=== PATIENT | female | born 1945 | race Caucasian/White ===

== ENCOUNTER → 2017-07-17 16:35 | Outpatient (CLI) | payer MEDICARE | END | disposition home or self-care (01) | LOC: D.MAMMO 14:30 | DX: Z12.31 Encounter for screening mammogram for malignant neoplasm of breast (principal) ==

== ENCOUNTER → 2018-07-02 18:12 | Outpatient (CLI) | payer MEDICARE | END | disposition home or self-care (01) | LOC: D.MAMMO 10:00 | DX: Z12.31 Encounter for screening mammogram for malignant neoplasm of breast (principal) ==

== ENCOUNTER 2019-08-02 17:48 | Inpatient (IN) | payer MEDICARE ==
[~2019-08-02] VITALS: Ht 165.1 cm; Wt 66.7 kg
[2019-08-02 18:00] VITALS: BP 134/73
[2019-08-02 18:22] LABS: BASOPHILS 0.2 % (0-2); EOSINOPHILS 0.2 % (0-7); HEMATOCRIT 44.6 % (36.0-48.0); HEMOGLOBIN 15.2 g/dL (12-16); IMMATURE GRANULOCYTES 0.6 % (0-5); LYMPHOCYTES 10.7 % (15-50); MCH 31.1 pg (26.0-34.0); MCHC 34.1 g/dL (31.0-37.0); MCV 91.4 fL (80.0-100.0); MEAN PLATELET VOLUME 10.6 fL (7.4-10.4); MONOCYTES 5.4 % (2-11); NEUTROPHILS 82.9 % (40-80); PLATELET COUNT 256 10x3/uL (130-400); RBC 4.88 10x6/uL (4.00-5.40); RDW 12.8 % (11.5-14.5); WBC 19.7 10x3/uL (4.8-10.8)
[2019-08-02 18:36] LABS: INR 1.04 (0.85-1.17); PROTIME 13.1 SECONDS (11.6-15.0)
[2019-08-02 18:37] LABS: CALC OSMOLALITY 282 mosm/kg (275-300); CALCIUM 9.4 mg/dL (8.5-10.1); CARBON DIOXIDE 26.1 mmol/L (21.0-32.0); CHLORIDE - SERUM 101 mmol/L (98-107); CREATININE - SERUM 1.3 mg/dL (0.6-1.3); GLUCOSE 154 mg/dL (74-106); POTASSIUM - SERUM 3.5 mmol/L (3.5-5.1); SODIUM 140 mmol/L (136-145); UREA NITROGEN 14 mg/dL (7-18); eGFR NON AFRICAN AMERICAN 42 mL/min (90-120)
[2019-08-02 18:46] LABS: ALBUMIN 3.7 g/dL (3.4-5.0); ALKALINE PHOSPHATASE 180 U/L (46-116); ALT (SGPT) 16 U/L (10-68); BILIRUBIN - TOTAL 0.34 mg/dL (0.2-1.3); C-REACTIVE PROTEIN 1.2 mg/dL (0.0-0.9); CKMB 0.4 U/L (0.0-3.6); CREATINE KINASE 45 UL (21-215); PRO BNP 334 pg/mL (0-125); PROTEIN - SERUM 7.3 g/dL (6.4-8.2); TROPONIN-I < 0.017 ng/mL (0.000-0.060)
[2019-08-02 19:00] VITALS: BP 175/74
[2019-08-02 20:00] VITALS: BP 187/86
--- NOTE | 2019-08-02 20:05 | NUR ---
URINE SENT TO THE LAB.
[2019-08-02 20:09] LABS: COLOR YELLOW (YELLOW)
[2019-08-02 20:10] LABS: APPEARANCE CLEAR (CLEAR); BILIRUBIN NEGATIVE (NEGATIVE); GLUCOSE 100 mg/dL (NEGATIVE); KETONE NEGATIVE (NEGATIVE); NITRITE NEGATIVE (NEGATIVE); PROTEIN 1+ mg/dL (NEGATIVE); SPECIFIC GRAVITY 1.005 (1.005-1.020); UROBILINOGEN NORMAL (NORMAL)
[2019-08-02 20:11] LABS: EPITHELIAL CELLS 0-5 /hpf (0-5); WHITE CELLS - URINE 0-5 /hpf (NEGATIVE)
[2019-08-02 20:12] LABS: AMORPHOUS SEDIMENT <1+ /lpf (NONE SEEN); BACTERIA MODERATE /hpf (NEGATIVE)
[2019-08-02 21:00] VITALS: BP 173/82
[2019-08-03] VITALS: BP 177/78
[2019-08-03 01:22] VITALS: BP 177/78; BMI 24.5
--- NOTE | 2019-08-03 05:10 | NUR ---
PATIENT IS ALERT AND ORENTED ABLE TO VOICE NEEDS AND WANTS TO STAFF. UP AT GERMAN, WATER IN REACH AT BEDSIDE CALL LIGHT IN REACH. HAS HAD BM X 4 THIS SHIFT WITH BRIGHT RED BLOOD PRESENT DECREASING AMOUNT EACH TIME AND A CLOT WAS IN THE LAST ONEABOUT THE SIZE OF A QUARTER. WITH NO STOOL PRESENT WITH EACH MOVEMENT. CONTIUES TO HAVE ABD PAIN.
[2019-08-03 07:57] VITALS: BP 150/68
[2019-08-03 09:36] LABS: BASOPHILS 0.1 % (0-2); EOSINOPHILS 0 % (0-7); IMMATURE GRANULOCYTES 0.2 % (0-5); LYMPHOCYTES 10.1 % (15-50); MCH 30.1 pg (26.0-34.0); MCHC 33.1 g/dL (31.0-37.0); MCV 90.8 fL (80.0-100.0); MEAN PLATELET VOLUME 10.3 fL (7.4-10.4); MONOCYTES 6.4 % (2-11); NEUTROPHILS 83.2 % (40-80); PLATELET COUNT 208 10x3/uL (130-400); RDW 12.9 % (11.5-14.5)
[2019-08-03 09:37] LABS: HEMATOCRIT 34.4 % (36.0-48.0); HEMOGLOBIN 11.4 g/dL (12-16); RBC 3.79 10x6/uL (4.00-5.40); WBC 13.1 10x3/uL (4.8-10.8)
[2019-08-03 09:41] LABS: ANION GAP 12.7 mmol/L (8-16); CALCIUM 8.6 mg/dL (8.5-10.1); CARBON DIOXIDE 22.8 mmol/L (21.0-32.0); CREATININE - SERUM 1.2 mg/dL (0.6-1.3); POTASSIUM - SERUM 3.5 mmol/L (3.5-5.1)
[2019-08-03 12:11] VITALS: BP 144/60
--- NOTE | 2019-08-03 14:12 | NUR ---
FAMILY AT BS. NO C/O PAIN. RESP EVEN AND UNLABORED.
[2019-08-03 14:24] LABS: HEMATOCRIT 32.9 % (36.0-48.0); HEMOGLOBIN 10.9 g/dL (12-16)
--- NOTE | 2019-08-03 16:17 | NUR ---
NO CHANGE IN ASSESSMENT. FAMILY AT BS. NO DISTRESS NOTED. CL IN REACH. RESP EVEN AND UNLABORED.
[2019-08-03 16:19] VITALS: BP 117/70
--- NOTE | 2019-08-03 19:00 | NUR ---
BEDSIDE REPORT RECEIVED AND CARE OF PT ASSUMED. PT LYING IN SUPINE POSITION VISITING WITH FAMILY MEMBER. IV TO LEFT AC PATENT WITH NS INFUSING AT 100 ML/HR. CLEAN IN PLACES OPERATOR W/ MORPHINE IN USE FOR PAIN CONTROL. WILL MONITOR FOR NEEDS.
[2019-08-03 19:43] LABS: HEMATOCRIT 31.2 % (36.0-48.0); HEMOGLOBIN 10.4 g/dL (12-16)
[2019-08-03 19:51] LABS: INR 1.23 (0.85-1.17); PROTIME 14.9 SECONDS (11.6-15.0)
[2019-08-03 20:52] VITALS: BP 113/72
--- NOTE | 2019-08-03 21:21 | NUR ---
HS MEDICATIONS GIVEN TO INCLUDE AMBIEN 10 MG PO PER REQUEST FOR SLEEP.
[2019-08-04] MEDS ORDERED: PRINIVIL10 MG PO (00:28)
[2019-08-04 01:21] VITALS: BP 161/71
[2019-08-04] MEDS ORDERED: ZOLOFT100 MG PO (01:42)
[2019-08-04] MEDS ORDERED: K-TAB10 MEQ PO (01:42)
[2019-08-04] MEDS ORDERED: DILTIAZEM 24HR240 M4 PO (01:42)
[2019-08-04] MEDS ORDERED: LIPITOR20 MG PO (01:43)
[2019-08-04] MEDS ORDERED: SOMA350 MG PO (01:43)
[2019-08-04] MEDS ORDERED: HYDROCODON-ACE1 EA10 PO (01:44)
--- NOTE | 2019-08-04 04:00 | NUR ---
HIBACLENS BATH PERFORMED AND ALL LINENS AND GOWN CHANGED.
[2019-08-04 04:49] LABS: BASOPHILS 0.1 % (0-2); EOSINOPHILS 0.1 % (0-7); HEMATOCRIT 31.3 % (36.0-48.0); HEMOGLOBIN 10.3 g/dL (12-16); IMMATURE GRANULOCYTES 0.3 % (0-5); LYMPHOCYTES 14.2 % (15-50); MCH 30.1 pg (26.0-34.0); MCHC 32.9 g/dL (31.0-37.0); MCV 91.5 fL (80.0-100.0); MEAN PLATELET VOLUME 10.6 fL (7.4-10.4); MONOCYTES 5.6 % (2-11); NEUTROPHILS 79.7 % (40-80); PLATELET COUNT 178 10x3/uL (130-400); RBC 3.42 10x6/uL (4.00-5.40); WBC 11.9 10x3/uL (4.8-10.8)
[2019-08-04 05:03] LABS: CALC OSMOLALITY 275 mosm/kg (275-300); CALCIUM 8.1 mg/dL (8.5-10.1); CARBON DIOXIDE 24.7 mmol/L (21.0-32.0); CHLORIDE - SERUM 105 mmol/L (98-107); CREATININE - SERUM 0.7 mg/dL (0.6-1.3); GLUCOSE 100 mg/dL (74-106); POTASSIUM - SERUM 3.2 mmol/L (3.5-5.1); SODIUM 139 mmol/L (136-145); UREA NITROGEN 6 mg/dL (7-18); eGFR NON AFRICAN AMERICAN 87 mL/min (90-120)
[2019-08-04 05:45] VITALS: BP 150/70
--- NOTE | 2019-08-04 07:47 | NUR ---
PT RESTING IN BED. NO ACUTE DISTRESS NOTED. PT RATES PAIN 4/10 AT THIS TIME. MORPHINE BIODIESEL PLANT SUPERINTENDENT INTACT AND IN USE. IV TO LEFT AC WITH NS @ 100 ML/HR INFUSING VIA PUMP. SITE WITHOUT REDNESS OR EDEMA. REPORTS ABDOMINAL TENDERNESS AT TIMES. DENIES FURTHER NEEDS AT THIS TIME. CL WITHIN REACH. ENCOURAGED TO CALL WITH NEEDS. CONTINUE POC
[2019-08-04 08:38] VITALS: BP 132/56
[2019-08-04 09:45] LABS: % SATURATION 12 % (15-55); IRON 27 ug/dl (35-150); TOTAL IRON BIND CAPACITY 222 ug/dl (260-445); UNSAT IRON BIND CAPACITY 195 ug/dl (150-375)
[2019-08-04 09:59] LABS: HEMATOCRIT 29.9 % (36.0-48.0); HEMOGLOBIN 9.9 g/dL (12-16)
[2019-08-04 12:48] VITALS: BP 128/62
[2019-08-04 14:20] VITALS: Ht 165.1 cm; Wt 66.7 kg
[2019-08-04 15:24] LABS: HEMATOCRIT 29.5 % (36.0-48.0); HEMOGLOBIN 9.6 g/dL (12-16)
[2019-08-04 16:43] VITALS: BP 109/50
--- NOTE | 2019-08-04 19:57 | NUR ---
REC'D IN BED DURING SHIFT CHGE WALKING ROUNDS IN BED HOB UP 40 DEGREES. FAMILY AT BEDSIDE DENIES ANY DISCOMFORT AT PRESENT TIME.INSTRUCTED TO LET NURSE ASSESS ANY RECTAL BLEEDING.VOICES UNDERSTANDING WILL CONTINUE TO MONIOR FOR ANY CHGES. AND FOLLOW CURRENT PLAN OF CARE
[2019-08-04 20:20] VITALS: BP 149/66
[2019-08-04 21:17] LABS: HEMATOCRIT 29.4 % (36.0-48.0); HEMOGLOBIN 9.8 g/dL (12-16)
[2019-08-05 00:40] VITALS: BP 116/52
[2019-08-05 05:41] VITALS: BP 144/58
[2019-08-05 06:46] LABS: BASOPHILS 0.1 % (0-2); EOSINOPHILS 0.7 % (0-7); HEMATOCRIT 30.3 % (36.0-48.0); IMMATURE GRANULOCYTES 0.4 % (0-5); LYMPHOCYTES 18.1 % (15-50); MCH 30.3 pg (26.0-34.0); MCV 91.8 fL (80.0-100.0); MEAN PLATELET VOLUME 10.5 fL (7.4-10.4); MONOCYTES 4.9 % (2-11); NEUTROPHILS 75.8 % (40-80); PLATELET COUNT 195 10x3/uL (130-400); RDW 12.9 % (11.5-14.5)
[2019-08-05 07:11] LABS: CALC OSMOLALITY 277 mosm/kg (275-300); CALCIUM 8.4 mg/dL (8.5-10.1); CARBON DIOXIDE 27.4 mmol/L (21.0-32.0); CHLORIDE - SERUM 105 mmol/L (98-107); CREATININE - SERUM 0.5 mg/dL (0.6-1.3); GLUCOSE 91 mg/dL (74-106); POTASSIUM - SERUM 3.1 mmol/L (3.5-5.1); SODIUM 141 mmol/L (136-145); UREA NITROGEN 3 mg/dL (7-18); eGFR NON AFRICAN AMERICAN > 90 mL/min (90-120)
--- NOTE | 2019-08-05 07:36 | NUR ---
I have reviewed this patient and I concur with the Shift Assessment completed by the Licensed Practical Nurse today this shift.
--- NOTE | 2019-08-05 07:50 | NUR ---
PT RESTING IN BED WITH DAUGHTER AT BEDSIDE. RESP EVEN AND UNLABORED. PT REPORTS BACK PAIN AT THIS TIME 03/12. MORPHINE ERGONOMICS TECHNICIAN INTACT AND IN USE. IV TO LEFT AC WITH NS @ 30ML/HR INFUSING VIA PUMP. SITE WITHOUT REDNESS OR EDEMA. DENIES FURTHER NEEDS AT THIS TIME. CL WITHIN REACH. ENCOURAGED TO CALL WITH NEEDS. CONTINUE POC
[2019-08-05 08:21] VITALS: BP 160/72
[2019-08-05 12:17] VITALS: BP 145/50
--- NOTE | 2019-08-05 16:31 | MORECARE ---
CASE MANAGEMENT DISCHARGE SUMMARY PATIENT: CIPRIANO NEGRETE UNIT: [id number] ADM DATE: 08/02/19 AGE: 74 : 46 SEX: F [facility] AUTHOR: SHAKEEL GHOTRA PHYSICIAN: REFERRING PHYSICIAN: KOLE GARCIA MD DATE OF SERVICE: 08/05/19 Discharge Plan Patient Name: CIPRIANO NEGRETE Facility: [facility]:[place] : 1945 Planned Disposition: Home Anticipated Discharge Date: 08/06/19 Discharge Date: Expected LOS: 4 Initial Reviewer: [email or web address] Initial Review Date: 08/05/2019 Generated: 08/05/19 5:31 pm Patient Name: CIPRIANO NEGRETE Page [id number] at 1631 All edits/amendments must be made on the electronic document DICTATION DATE: 08/05/19 1631 ASSEMBLER MOTOR VEHICLE: FLORENCIO 08/05/19 1631 RPT#: [id number] DC DATE: STATUS: ADM IN [facility] [address] [place] [address] END OF REPORT
[2019-08-05 16:34] VITALS: BP 132/64
--- NOTE | 2019-08-05 16:41 | MORECARE ---
CASE MANAGEMENT DISCHARGE SUMMARY PATIENT: CIPRIANO NEGRETE UNIT: [id number] ADM DATE: 08/02/19 AGE: 74 : 46 SEX: F ROOM/BED: D.2235 AUTHOR: SHAKEEL GHOTRA PHYSICIAN: REFERRING PHYSICIAN: KOLE GARCIA MD DATE OF SERVICE: 08/05/19 Discharge Plan Patient Name: CIPRIANO NEGRETE Facility: [facility]:[place] : 1945 Planned Disposition: Home Anticipated Discharge Date: 08/06/19 Discharge Date: Expected LOS: 4 Initial Reviewer: [email or web address] Initial Review Date: 08/05/2019 Generated: 08/05/19 5:40 pm Comments DCP- Discharge Planning Updated by [email or web address]: Deepti Mcneil on 08/05/19 3:[address] Patient Name: CIPRIANO NEGRETE Admission Status: ER Accout number: [id number] Admission Date: 08-02-2019 : 1945 Admission Diagnosis: Attending: SPRING Current LOS: 3 Anticipated DC Date: 08-06-2019 Planned Disposition: Home Primary Insurance: MEDICARE A & B Discharge Planning Comments: CM met with patient to complete initial dc planning assessment, she is alone in the room. CM educated patient on the CM role and verbal consent given by patient to complete assessment. Patient lives at home with her spouse and her brother. At discharge patient plans to return and feels this is a safe discharge. CM discussed availability of home health, rehab services, and medical equipment. Patient denied known discharge needs at this time. CM will continue to follow and will assist as needed with dc plans/needs. Residential Care Facility Manager: Deepti Mcneil DCPIA - Discharge Planning Initial Assessment Updated by [email or web address]: Deepti Mcneil on 08/05/19 4:38 pm * Is the patient Alert and Oriented? Yes * How many steps to enter\exit or inside your home? 3/2 flight * PCP Dr. Ashraf * [facility] [address] * Preadmission Environment Home with Family * ADLs Independent * Equipment None * List name and contact numbers for known caregivers / representatives who currently or will assist patient after discharge: Ba Trejo [facility] [phone] or [phone] * Verbal permission to speak to the caregivers and representatives has been obtained from the patient. Yes * Community resources currently utilized None * Additional services required to return to the preadmission environment? No * Can the patient safely return to the preadmission environment? Yes * Has this patient been hospitalized within the prior 30 days at any hospital? No Coverage Notice Reviewer: [id number] Delphine Mcneil Notice Issued Date-Time: 08/05/2019 16:39 Notice Type: IM Discharge Notice Notice Delivered To: Patient Relationship to Patient: Self Supervisor Type Bar And Segment Name: Delivery Method: HAND - Hand Delivered Tiffanie Days: Prior Verbal Notification: Recipient Understood Notice: Yes Recipient Signature: Yes Med Rec Note Co-signed by Attending: Coverage Notice Comment: IMM explained, signed, given, copy placed in MR Last DP export: 08/05/19 3:31 p Patient Name: CIPRIANO NEGRETE Page [phone] at 1641 All edits/amendments must be made on the electronic document DICTATION DATE: 08/05/19 1640 CHEESE WEIGHER: FLORENCIO 08/05/19 1640 RPT#: [id number] DC DATE: STATUS: ADM IN [facility] [address] [place] [address] END OF REPORT
--- NOTE | 2019-08-05 20:16 | NUR ---
c/o nausea no emesis during chge. of shift.walking rounds zofran given slow iv as ordered for relief.will continue to monitor for any chges and follow current plan of care. family at bedside dr. clay here
[2019-08-05 21:15] VITALS: BP 159/73
[2019-08-06 01:04] VITALS: BP 166/75
[2019-08-06 05:50] VITALS: BP 172/71
--- NOTE | 2019-08-06 06:00 | NUR ---
I have reviewed this patient and I concur with the Shift Assessment completed by the Licensed Practical Nurse today this shift.
[2019-08-06 06:50] LABS: CALC OSMOLALITY 285 mosm/kg (275-300); CALCIUM 8.3 mg/dL (8.5-10.1); CHLORIDE - SERUM 107 mmol/L (98-107); CREATININE - SERUM 0.6 mg/dL (0.6-1.3); GLUCOSE 100 mg/dL (74-106); POTASSIUM - SERUM 3.5 mmol/L (3.5-5.1); SODIUM 145 mmol/L (136-145); eGFR NON AFRICAN AMERICAN > 90 mL/min (90-120)
[2019-08-06 06:53] LABS: UREA NITROGEN 4 mg/dL (7-18)
[2019-08-06 06:58] LABS: BASOPHILS 0.1 % (0-2); EOSINOPHILS 1.2 % (0-7); HEMATOCRIT 30.4 % (36.0-48.0); HEMOGLOBIN 10.1 g/dL (12-16); IMMATURE GRANULOCYTES 1.2 % (0-5); LYMPHOCYTES 20.4 % (15-50); MCH 30.2 pg (26.0-34.0); MCHC 33.2 g/dL (31.0-37.0); MEAN PLATELET VOLUME 10.8 fL (7.4-10.4); MONOCYTES 6.7 % (2-11); NEUTROPHILS 70.4 % (40-80); PLATELET COUNT 207 10x3/uL (130-400); RBC 3.34 10x6/uL (4.00-5.40); RDW 12.8 % (11.5-14.5)
[2019-08-06 07:04] LABS: WBC 6.7 10x3/uL (4.8-10.8)
--- NOTE | 2019-08-06 08:00 | NUR ---
ASSESSMENT PER FLOW SHEET. PT IS WITHOUT DISTRESS.MONITOR FOR NEEDS.
[2019-08-06 08:36] VITALS: BP 142/70
[2019-08-06 12:32] VITALS: BP 136/64
--- NOTE | 2019-08-06 14:45 | NUR ---
STOOL TO LAB ORDERED
[2019-08-06 16:28] VITALS: BP 164/76
--- NOTE | 2019-08-06 18:45 | NUR ---
PT REMAINS WITHOUT DISTRESS. PT IS WITHOUT DHANGE.CONT PLAN OF CARE
--- NOTE | 2019-08-06 19:18 | NUR ---
LYING IN BED WITH TELEVISION ON, FAMILY AT BEDSIDE. COMPLAINS OF EFFECTS OF IRON. INFUSION IS COMPLETE, WILL FLUSH IV. IV SITE APPEARS TO HAVE BECOME INFILTRATED. RESITED TO RIGHT OUTER FOREARM WITH 22G, OLD IV TO LEFT AC DCD WITH TIP INTACT. COMPLAINS OF NAUSEA AND UNABLE TO SLEEP, WILL MEDICATE ACCORDING TO MAR, WILL NOTE ANY CHANGE.
[2019-08-06 20:00] VITALS: BP 148/72
[2019-08-07] VITALS: BP 152/68
--- NOTE | 2019-08-07 01:45 | NUR ---
I have reviewed this patient and I concur with the Shift Assessment completed by the Licensed Practical Nurse today this shift.
[2019-08-07 04:00] VITALS: BP 160/73
--- NOTE | 2019-08-07 06:18 | NUR ---
REQUESTED PAIN MEDICATION AT 0133 THIS SHIFT, EFFECTIVE. SLEPT MOST OF SHIFT WITH FAMILY AT BEDSIDE. WILL NOTE ANY CHANGE.
[2019-08-07 06:44] LABS: CALCIUM 8.3 mg/dL (8.5-10.1); CARBON DIOXIDE 30.5 mmol/L (21.0-32.0); CHLORIDE - SERUM 106 mmol/L (98-107); CREATININE - SERUM 0.5 mg/dL (0.6-1.3); GLUCOSE 96 mg/dL (74-106); SODIUM 141 mmol/L (136-145); eGFR NON AFRICAN AMERICAN > 90 mL/min (90-120)
[2019-08-07 06:50] LABS: CALC OSMOLALITY 276 mosm/kg (275-300); UREA NITROGEN 2 mg/dL (7-18)
--- NOTE | 2019-08-07 06:50 | NUR ---
CRITICAL POTASSIUM NOTED 2.8. BEATER ROOM SUPERVISOR MADE AWARE. ELECTROLYTE PROTOCOL IN PROGRESS. DENIES NEEDS OR PAIN AT THIS TIME. PT STATES SHE HAD A BM HOWEVER, HAT DID NOT CATCH SAMPLE. HAT ADJUSTED AND PT EDUCATED ON IMPORTANCE OF SAMPLE. RR EVEN AND UNLABORED. BED IN LOWEST POSITION.CALL LIGHT WITHIN REACH. WILL CONTINUE TO MONITOR.
[2019-08-07 06:52] LABS: POTASSIUM - SERUM 2.8 mmol/L (3.5-5.1)
[2019-08-07 07:01] LABS: HEMATOCRIT 28.1 % (36.0-48.0); HEMOGLOBIN 9.6 g/dL (12-16); LYMPHOCYTES 29.8 % (15-50); MCH 30.8 pg (26.0-34.0); MCHC 34.2 g/dL (31.0-37.0); MCV 90.1 fL (80.0-100.0); MEAN PLATELET VOLUME 10.2 fL (7.4-10.4); NEUTROPHILS 61.7 % (40-80); PLATELET COUNT 216 10x3/uL (130-400); RBC 3.12 10x6/uL (4.00-5.40); RDW 12.9 % (11.5-14.5); WBC 5.8 10x3/uL (4.8-10.8)
[2019-08-07 08:36] VITALS: BP 150/74
--- NOTE | 2019-08-07 13:43 | NUR ---
Nutrition follow-up: Diet: Regular PO intake 50-100% of last 3 meals Labs reviewed; Mg,K low and being replaced Wt: 146# PO intake good at this time. RDN following.
[2019-08-07 14:44] VITALS: BP 172/82
[2019-08-07 16:36] VITALS: BP 182/89
--- NOTE | 2019-08-07 17:24 | NUR ---
I have reviewed this patient and I concur with the Shift Assessment completed by the Licensed Practical Nurse today this shift.
--- NOTE | 2019-08-07 19:00 | NUR ---
BEDSIDE REPORT RECEIVED AND CARE OF PT ASSUMED. PT LYING IN SUPINE POSITION VISITING WITH SPOUSE. PT WAITING FOR MD TO POSSIBLY D/C TODAY.
[2019-08-07 20:01] LABS: MAGNESIUM - SERUM 1.5 mg/dL (1.8-2.4)
[2019-08-07 20:02] LABS: POTASSIUM - SERUM 3.6 mmol/L (3.5-5.1)
--- NOTE | 2019-08-07 20:30 | NUR ---
ROUNDED ON PT...STAYING TONIGHT. POSSIBLE D/C TOMORROW.
[2019-08-07 21:00] VITALS: BP 191/88
--- NOTE | 2019-08-07 21:02 | NUR ---
HS MEDICATIONS GIVEN. WILL CONTINUE TO MONITOR FOR NEEDS.
--- NOTE | 2019-08-07 21:40 | NUR ---
MAG LEVEL 1.5 ON RE-DRAW. GAVE 400 MG MAG OX PER ELECTROLYTE PROTOCAL.
[2019-08-08 00:13] VITALS: BP 150/78
[2019-08-08 05:14] VITALS: BP 186/86
[2019-08-08 07:02] LABS: CALC OSMOLALITY 277 mosm/kg (275-300); CALCIUM 8.5 mg/dL (8.5-10.1); CARBON DIOXIDE 28.7 mmol/L (21.0-32.0); CHLORIDE - SERUM 105 mmol/L (98-107); CREATININE - SERUM 0.6 mg/dL (0.6-1.3); GLUCOSE 107 mg/dL (74-106); POTASSIUM - SERUM 3.1 mmol/L (3.5-5.1); SODIUM 141 mmol/L (136-145); eGFR NON AFRICAN AMERICAN > 90 mL/min (90-120)
[2019-08-08 07:07] LABS: BASOPHILS 0.3 % (0-2); EOSINOPHILS 1.8 % (0-7); HEMOGLOBIN 10.4 g/dL (12-16); IMMATURE GRANULOCYTES 3.7 % (0-5); LYMPHOCYTES 27.3 % (15-50); MCH 30.3 pg (26.0-34.0); MCHC 33.5 g/dL (31.0-37.0); MCV 90.4 fL (80.0-100.0); MONOCYTES 10.4 % (2-11); NEUTROPHILS 56.5 % (40-80); RBC 3.43 10x6/uL (4.00-5.40); RDW 12.9 % (11.5-14.5); WBC 6.8 10x3/uL (4.8-10.8)
[2019-08-08 07:08] LABS: PLATELET COUNT 278 10x3/uL (130-400)
[2019-08-08 07:09] LABS: UREA NITROGEN 3 mg/dL (7-18)
--- NOTE | 2019-08-08 08:00 | NUR ---
ALERT AND ORIENTED X4. ABDOMEN SOFT WITH BOWEL SOUNDS NOTED X4 WITH FLATULANCE. OV TO RT. F/A WITH IVF INFUSING AT PRESCRIBED RATE. TELEMETRY INTACT. DENEIS ANY PAIN OR DISCOMFORT WITH FAMILY PRESENT. ENCOURAGED TO USE CALL LIGHT FOR ASSIST.
[2019-08-08 08:46] VITALS: BP 185/83
--- NOTE | 2019-08-08 09:16 | MORECARE ---
CASE MANAGEMENT DISCHARGE SUMMARY PATIENT: CIPRIANO NEGRETE UNIT: [id number] ADM DATE: 08/02/19 AGE: 74 : 46 SEX: F ROOM/BED: D.2235 AUTHOR: SHAKEEL GHOTRA PHYSICIAN: REFERRING PHYSICIAN: KOLE GARCIA MD DATE OF SERVICE: 08/08/19 Discharge Plan Patient Name: CIPRIANO NEGRETE Facility: [facility]:[place] : 1945 Planned Disposition: Home Anticipated Discharge Date: 08/06/19 Discharge Date: Expected LOS: 4 Initial Reviewer: [email or web address] Initial Review Date: 08/05/2019 Generated: 08/08/19 10:16 am Comments DCP- Discharge Planning Updated by [email or web address]: Deepti Mcneil on 08/08/19 8:[address] Patient Name: CIPRIANO NEGRETE Encounter No: [id number] : 1945 Primary Insurance: MEDICARE A & B Anticipated DC Date: 08-06-2019 Planned Disposition: Home External Planned Provider: : DCP follow-up note: Patient and family in agreement with discharge plan. No changes to plan. Case management will follow and assist as needed. Deepti Mcneil DCP- Discharge Planning Updated by [email or web address]: Deepti Mcneil on 08/05/19 3:[address] Patient Name: CIPRIANO NEGRETE Admission Status: ER Accout number: [id number] Admission Date: 08-02-2019 : 1945 Admission Diagnosis: Attending: SPRING Current LOS: 3 Anticipated DC Date: 08-06-2019 Planned Disposition: Home Primary Insurance: MEDICARE A & B Discharge Planning Comments: CM met with patient to complete initial dc planning assessment, she is alone in the room. CM educated patient on the CM role and verbal consent given by patient to complete assessment. Patient lives at home with her spouse and her brother. At discharge patient plans to return and feels this is a safe discharge. CM discussed availability of home health, rehab services, and medical equipment. Patient denied known discharge needs at this time. CM will continue to follow and will assist as needed with dc plans/needs. Television News Producer: Deepti Mcneil DCPIA - Discharge Planning Initial Assessment Updated by [id number]: Deepti Mcneil on 08/05/19 4:38 pm * Is the patient Alert and Oriented? Yes * How many steps to enter\exit or inside your home? 3/2 flight * PCP Dr. Ashraf * [facility] [address] * Preadmission Environment Home with Family * ADLs Independent * Equipment None * List name and contact numbers for known caregivers / representatives who currently or will assist patient after discharge: Ba Trejo - spouse - [phone] or [phone] * Verbal permission to speak to the caregivers and representatives has been obtained from the patient. Yes * Community resources currently utilized None * Additional services required to return to the preadmission environment? No * Can the patient safely return to the preadmission environment? Yes * Has this patient been hospitalized within the prior 30 days at any hospital? No Coverage Notice Reviewer: [email or web address] Mcneil Notice Issued Date-Time: 08/05/2019 16:39 Notice Type: IM Discharge Notice Notice Delivered To: Patient Relationship to Patient: Self Cargo And Ramp Services Manager Name: Delivery Method: HAND - Hand Delivered Tiffanie Days: Prior Verbal Notification: Recipient Understood Notice: Yes Recipient Signature: Yes Med Rec Note Co-signed by Attending: Coverage Notice Comment: IMM explained, signed, given, copy placed in MR Reviewer: [id number] Mcneil Notice Issued Date-Time: 08/08/2019 9:13 Notice Type: IM Discharge Notice Notice Delivered To: Patient Relationship to Patient: Cargo And Ramp Services Manager Name: Delivery Method: HAND - Hand Delivered Tiffanie Days: Prior Verbal Notification: Recipient Understood Notice: Yes Recipient Signature: Yes Med Rec Note Co-signed by Attending: Coverage Notice Comment: IMM explained, signed, given, copy placed in MR Last DP export: 08/05/19 3:41 p Patient Name: CIPRIANO NEGRETE Page [phone] at 0916 All edits/amendments must be made on the electronic document DICTATION DATE: 08/08/19915 DEVELOPMENT GEOLOGIST: FLORENCIO 08/08/19915 RPT#: [id number] DC DATE: STATUS: ADM IN [facility] [address] [place] [address] END OF REPORT
[2019-08-08] MEDS ORDERED: FLAGYL500 MG PO (09:48)
[2019-08-08] MEDS ORDERED: MAG 6464 MG PO (09:48)
[2019-08-08] MEDS ORDERED: LEVAQUIN750 MG PO (09:49)
--- NOTE | 2019-08-08 12:30 | NUR ---
IV DISCONTINUED AND VERBALIZED UNDERSTANDING OF DISCHARGE INSTRUCTIONS. STABLE AT TIME OF DISCHARGE UNDER CARE OF .
--- NOTE | 2019-08-10 16:22 | MORECARE ---
CASE MANAGEMENT DISCHARGE SUMMARY PATIENT: CIPRIANO NEGRETE UNIT: [id number] ADM DATE: 08/02/19 AGE: 74 : 46 SEX: F ROOM/BED: D.2235 AUTHOR: SHAKEEL GHOTRA PHYSICIAN: REFERRING PHYSICIAN: KOLE GARCIA MD DATE OF SERVICE: 08/10/19 Discharge Plan Patient Name: CIPRIANO NEGRETE Facility: [facility]:[place] : 1945 Planned Disposition: Home Anticipated Discharge Date: 08/06/19 Discharge Date: 08/08/2019 Expected LOS: 4 Initial Reviewer: [email or web address] Initial Review Date: 08/05/2019 Generated: 08/10/19 5:21 pm Comments DCP- Discharge Planning Updated by [email or web address]: Deepti Mcneil on 08/08/19 8:[address] Patient Name: CIPRIANO NEGRETE Encounter No: [id number] : 1945 Primary Insurance: MEDICARE A & B Anticipated DC Date: 08-06-2019 Planned Disposition: Home External Planned Provider: : DCP follow-up note: Patient and family in agreement with discharge plan. No changes to plan. Case management will follow and assist as needed. Deepti Mcneil DCP- Discharge Planning Updated by [email or web address]: Deepti Mcneil on 08/05/19 3:[address] Patient Name: CIPRIANO NEGRETE Admission Status: ER Accout number: [id number] Admission Date: 08-02-2019 : 1945 Admission Diagnosis: Attending: SPRING Current LOS: 3 Anticipated DC Date: 08-06-2019 Planned Disposition: Home Primary Insurance: MEDICARE A & B Discharge Planning Comments: CM met with patient to complete initial dc planning assessment, she is alone in the room. CM educated patient on the CM role and verbal consent given by patient to complete assessment. Patient lives at home with her spouse and her brother. At discharge patient plans to return and feels this is a safe discharge. CM discussed availability of home health, rehab services, and medical equipment. Patient denied known discharge needs at this time. CM will continue to follow and will assist as needed with dc plans/needs. Polymer Engineer: Deepti Bettsell DCPIA - Discharge Planning Initial Assessment Updated by [email or web address]: Deepti Mcneil on 08/05/19 4:38 pm * Is the patient Alert and Oriented? Yes * How many steps to enter\exit or inside your home? 3/2 flight * PCP Dr. Ashraf * [facility] [address] * Preadmission Environment Home with Family * ADLs Independent * Equipment None * List name and contact numbers for known caregivers / representatives who currently or will assist patient after discharge: Ba Trejo - spouse - [phone] or [phone] * Verbal permission to speak to the caregivers and representatives has been obtained from the patient. Yes * Community resources currently utilized None * Additional services required to return to the preadmission environment? No * Can the patient safely return to the preadmission environment? Yes * Has this patient been hospitalized within the prior 30 days at any hospital? No Coverage Notice Reviewer: [email or web address] Delphine Mcneil Notice Issued Date-Time: 08/05/2019 16:39 Notice Type: IM Discharge Notice Notice Delivered To: Patient Relationship to Patient: Self Pastry Wrapper Name: Delivery Method: HAND - Hand Delivered Tiffanie Days: Prior Verbal Notification: Recipient Understood Notice: Yes Recipient Signature: Yes Med Rec Note Co-signed by Attending: Coverage Notice Comment: IMM explained, signed, given, copy placed in MR Reviewer: [id number] Delphine Mcneil Notice Issued Date-Time: 08/08/2019 9:13 Notice Type: IM Discharge Notice Notice Delivered To: Patient Relationship to Patient: Pastry Wrapper Name: Delivery Method: HAND - Hand Delivered Tiffanie Days: Prior Verbal Notification: Recipient Understood Notice: Yes Recipient Signature: Yes Med Rec Note Co-signed by Attending: Coverage Notice Comment: IMM explained, signed, given, copy placed in MR Last DP export: 08/08/19 8:16 a Patient Name: CIPRIANO NEGRETE Page [id number] at 1622 All edits/amendments must be made on the electronic document DICTATION DATE: 08/10/191620 SAFETY INTERN: FLORENCIO 08/10/191620 RPT#: [id number] DC DATE:08/08/19 STATUS: DIS IN [place] [id number] [place] [address] END OF REPORT
== END 2019-08-08 12:30 | disposition home or self-care (01) | DRG 372 ==
LOC: D.ER 17:48 → D.MS 21:03
PROVIDERS: Family Medicine; Internal Medicine Nephrology; Surgery; ADMIT Family Medicine; ATTEND Family Medicine
DX: A04.5 Campylobacter enteritis (principal); K92.2 Gastrointestinal hemorrhage, unspecified; D62 Acute posthemorrhagic anemia; N39.0 Urinary tract infection, site not specified; E87.2 Acidosis; F17.203 Nicotine dependence unspecified, with withdrawal; I77.4 Celiac artery compression syndrome; E86.0 Dehydration; I10 Essential (primary) hypertension; E78.5 Hyperlipidemia, unspecified; K21.9 Gastro-esophageal reflux disease without esophagitis; M54.9 Dorsalgia, unspecified; F41.8 Other specified anxiety disorders; E87.6 Hypokalemia; E83.42 Hypomagnesemia

== ENCOUNTER 2019-09-01 13:00 | Outpatient (CLI) | payer MEDICARE ==
[2019-08-04 14:20] VITALS: BMI 24.4
[~2019-09-01 13:00] MED LIST: DILTIAZEM 24HR240 M4 PO; FLAGYL500 MG PO; HYDROCODON-ACE1 EA10 PO; K-TAB10 MEQ PO; LEVAQUIN750 MG PO; LIPITOR20 MG PO; MAG 6464 MG PO; PRINIVIL10 MG PO; SOMA350 MG PO; ZOLOFT100 MG PO
== END 2019-09-01 13:30 | disposition home or self-care (01) ==
LOC: D.MAMMO 13:00
PROVIDERS: ATTEND Family Medicine
DX: Z12.31 Encounter for screening mammogram for malignant neoplasm of breast (principal)